=== PATIENT | female | born 1945 | race Caucasian/White ===

== ENCOUNTER 2016-09-11 09:04 | Outpatient (CLI) | payer MEDICARE, OTHER ==
[2014-01-29 19:07] VITALS: BP 123/59
== END 2016-09-11 09:05 ==
LOC: LAB 09:04
PROVIDERS: ATTEND Family Medicine
DX: E11.9 Type 2 diabetes mellitus without complications (principal)
CPT/HCPCS: 36415; 83036

== ENCOUNTER 2016-12-16 09:25 | Outpatient (CLI) | payer MEDICARE, OTHER ==
[2014-01-29 19:07] VITALS: BP 123/59
== END 2016-12-16 09:26 ==
LOC: LAB 09:25
PROVIDERS: ATTEND Family Medicine
DX: E11.9 Type 2 diabetes mellitus without complications (principal)
CPT/HCPCS: 36415; 82043; 83036

== ENCOUNTER 2017-04-18 14:19 | Outpatient (CLI) | payer MEDICARE, OTHER ==
[2014-01-29 19:07] VITALS: BP 123/59
[2017-04-18 14:35] LABS: BASOPHILS % 0.9 (0.0-1.5); MEAN CORPUSCULAR HEMOGLOBIN 27.8 pg (28.0-34.0); MEAN CORPUSCULAR VOLUME 86.3 fl (80.0-100.0); MONOCYTES % 5.8 % (0.0-11.0)
[2017-04-18 15:09] LABS: eGFR (African) > 60; eGFR (Non-African) > 60
== END 2017-04-18 14:20 ==
LOC: LAB 14:19
PROVIDERS: ATTEND Family Medicine
DX: E11.9 Type 2 diabetes mellitus without complications (principal); I10 Essential (primary) hypertension
CPT/HCPCS: 36415; 80053; 83036; 84443; 85025

== ENCOUNTER 2017-06-12 09:43 | Outpatient (CLI) | payer MEDICARE, OTHER ==
[2014-01-29 19:07] VITALS: BP 123/59
[2017-06-12 10:44] LABS: eGFR (African) > 60; eGFR (Non-African) > 60
== END 2017-06-12 09:44 ==
LOC: LAB 09:43
PROVIDERS: ATTEND Family Medicine
DX: E11.9 Type 2 diabetes mellitus without complications (principal); Z79.4 Long term (current) use of insulin
CPT/HCPCS: 36415; 80053; 80061; 83036

== ENCOUNTER 2017-12-17 08:58 | Outpatient (CLI) | payer MEDICARE, OTHER ==
[2014-01-29 19:07] VITALS: BP 123/59
== END 2017-12-17 09:00 ==
LOC: LAB 08:58
PROVIDERS: ATTEND Family Medicine
DX: E11.9 Type 2 diabetes mellitus without complications (principal)
CPT/HCPCS: 36415; 83036

== ENCOUNTER 2018-10-19 08:32 | Outpatient (CLI) | payer MEDICARE, OTHER ==
[2014-01-29 19:07] VITALS: BP 123/59
[2018-10-19 09:51] LABS: eGFR (Non-African) 39
== END 2018-10-19 08:33 ==
LOC: LAB 08:32
PROVIDERS: ATTEND Family Medicine
DX: E11.9 Type 2 diabetes mellitus without complications (principal)
CPT/HCPCS: 36415; 80053; 80061; 82043; 83036